=== PATIENT | female | born 1975 | race Native Hawaiian/Other Pacific Islander ===

== ENCOUNTER 2016-11-19 12:56 | Outpatient (CLI) | payer OTHER | END 2016-11-19 19:05 | disposition home or self-care (01) | LOC: MAMMO 12:56 | DX: N63 Unspecified lump in breast (principal) | CPT/HCPCS: G0204-TC ==

== ENCOUNTER 2017-06-17 14:58 | Outpatient (CLI) | payer OTHER | END 2017-06-18 04:44 | disposition home or self-care (01) | LOC: MAMMO 14:58 | DX: R92.8 Other abnormal and inconclusive findings on diagnostic imaging of breast (principal) ==

== ENCOUNTER 2018-01-12 09:36 | Inpatient (IN) | payer SELFPAY ==
[~2018-01-12] VITALS: Ht 154.9 cm; Wt 59.5 kg
[2018-01-12 09:46] VITALS: BP 122/82; TEMP 98.1
[2018-01-12 10:15] LABS: PLATELET COUNT 287 K/uL (152-353)
[2018-01-12 10:21] LABS: POTASSIUM 3.8 mmol/L (3.6-5.2)
[2018-01-12 16:49] VITALS: BP 112/72; TEMP 98.4; Ht 154.9 cm; Wt 59.5 kg
[2018-01-12 20:00] VITALS: BP 95/49; TEMP 98.6
[2018-01-13 00:10] VITALS: BP 99/53; TEMP 98.8
[2018-01-13 04:00] VITALS: BP 78/36; TEMP 98.5
[2018-01-13 05:44] LABS: PLATELET COUNT 237 K/uL (152-353)
[2018-01-13 05:59] LABS: POTASSIUM 3.9 mmol/L (3.6-5.2)
[2018-01-13 08:04] VITALS: BP 72/46; TEMP 98.6
[2018-01-13 12:19] VITALS: BP 99/58; TEMP 98.4
[2018-01-13 16:06] VITALS: BP 127/71; TEMP 98.5
[2018-01-13 20:00] VITALS: BP 114/73; TEMP 98.2
[2018-01-14] VITALS: BP 113/65; TEMP 98.4
[2018-01-14 04:00] VITALS: BP 109/55; TEMP 98.7
[2018-01-14 05:57] LABS: PLATELET COUNT 278 K/uL (152-353)
[2018-01-14 06:17] LABS: POTASSIUM 3.7 mmol/L (3.6-5.2)
[2018-01-14 08:00] VITALS: BP 99/56; TEMP 98.3
[2018-01-14 12:00] VITALS: BP 105/70; TEMP 98.7
[2018-01-14 16:00] VITALS: BP 140/92; TEMP 98.1
[2018-01-14 20:00] VITALS: BP 125/75; TEMP 98.6
[2018-01-15] VITALS: BP 121/67; TEMP 97.7
[2018-01-15 03:51] VITALS: BP 104/56; TEMP 98
[2018-01-15 05:46] LABS: PLATELET COUNT 274 K/uL (152-353)
[2018-01-15 06:04] LABS: POTASSIUM 3.6 mmol/L (3.6-5.2)
[2018-01-15 08:00] VITALS: BP 103/58; TEMP 98.3
[2018-01-15 12:00] VITALS: BP 135/82; TEMP 98.3
[2018-01-15 16:00] VITALS: BP 146/80; TEMP 98.4
[2018-01-15 20:00] VITALS: BP 113/72; TEMP 98.1
[2018-01-16 01:00] VITALS: BP 138/84; TEMP 98.1
[2018-01-16 04:00] VITALS: BP 105/56; TEMP 97.6
[2018-01-16 05:32] LABS: PLATELET COUNT 282 K/uL (152-353)
[2018-01-16 05:50] LABS: POTASSIUM 3.7 mmol/L (3.6-5.2)
[2018-01-16 08:02] VITALS: BP 104/72; TEMP 97.7
[2018-01-16 12:08] VITALS: BP 112/63; TEMP 97.8
[2018-01-16 16:00] VITALS: BP 130/91; TEMP 98.4
[2018-01-16 20:06] VITALS: BP 168/91; TEMP 98.3
[2018-01-17] VITALS: BP 121/75; TEMP 98.5
[2018-01-17 04:00] VITALS: BP 120/76; TEMP 98.2
[2018-01-17 05:46] LABS: PLATELET COUNT 311 K/uL (152-353)
[2018-01-17 05:57] LABS: POTASSIUM 3.7 mmol/L (3.6-5.2)
[2018-01-17 08:03] VITALS: BP 101/51; TEMP 98.1
[2018-01-17] MEDS ORDERED: AMBIEN 10MG TAB PO (09:55)
[2018-01-17] MEDS ORDERED: ONDA4TAB3 PO (09:55)
[2018-01-17] MEDS ORDERED: OXYC5TAB24 PO (09:55)
[2018-01-17] MEDS ORDERED: [UNRECOGNIZED DRUG - CODE] (09:55)
== END 2018-01-17 11:25 | disposition home or self-care (01) | DRG 392 ==
LOC: ED 09:36 → MED/SURG 14:55
PROVIDERS: ADMIT Emergency Medicine
DX: K57.32 Diverticulitis of large intestine without perforation or abscess without bleeding (principal); K80.80 Other cholelithiasis without obstruction
CPT/HCPCS: 36415; 80053; 81000; 81025; 82150; 83690; 85027; 85651; 93005; 96374; 96375; 99284; J0744; J1170; J1885; J2175; J2405; J2543; J2550; Q9963

== ENCOUNTER 2019-10-16 00:59 | Emergency (ER) | payer OTHER ==
[~2019-10-16 00:59] MED LIST: AMBIEN 10MG TAB PO; ONDA4TAB3 PO; OXYC5TAB24 PO; [UNRECOGNIZED DRUG - CODE]
== END 2019-10-16 01:07 | disposition home or self-care (01) ==
LOC: ED 00:59
DX: S49.91XA Unspecified injury of right shoulder and upper arm, initial encounter (principal); S59.911A Unspecified injury of right forearm, initial encounter

== ENCOUNTER 2019-12-12 09:09 | Outpatient (CLI) | payer BC | END 2019-12-12 23:59 | disposition home or self-care (01) | LOC: MAMMO 09:09 | DX: Z12.31 Encounter for screening mammogram for malignant neoplasm of breast (principal) ==

== ENCOUNTER 2020-12-25 14:59 | Outpatient (CLI) | payer BC | END 2020-12-25 22:43 | disposition home or self-care (01) | LOC: MAMMO 14:59 | PROVIDERS: ATTEND Nurse Practitioner | DX: Z12.31 Encounter for screening mammogram for malignant neoplasm of breast (principal) ==